=== PATIENT | female | born 1995 | race Caucasian/White ===

== ENCOUNTER 2019-09-21 03:07 | Emergency (ER) | payer MEDICAID ==
[~2019-09-21] VITALS: Ht 139.7 cm; Wt 68.0 kg
[2019-09-21 05:46] VITALS: BP 134/86
== END 2019-09-21 07:00 | disposition home or self-care (01) ==
LOC: ER 03:07
DX: F41.9 Anxiety disorder, unspecified (principal); E11.9 Type 2 diabetes mellitus without complications; J45.909 Unspecified asthma, uncomplicated
CPT/HCPCS: 93005; 99283